=== PATIENT | female | born 1965 | race American Indian/Alaskan Native ===

== ENCOUNTER 2018-11-11 07:44 | Day surgery (SDC) | payer BC, OTHER ==
[~2018-11-11] VITALS: Ht 162.6 cm; Wt 83.8 kg
[~2018-11-11 07:44] MED LIST: AMLO10TA5 PO; AMOX500C PO; ATEN50TA2 PO; ATOR1TAB19 PO; AZIT-12 PO; BUPR150T3 PO; BUPR300T34 PO; CICL8SOL3 TOP; DICL1GEL3 TOP; KETO2CR; KETO2CR EXT; KETOROLAC 60 MG/2 ML VIAL (J1885) As Ordered ONE; LIDOCAINE 2% INJ 100 MG/5 ML SDV (FOR ANES.) As Ordered ONE; LOSA50TA88 PO; LR 1,000 ML IV SCH; MIDAZOLAM INJ 2 MG/2 ML VIAL (J2250) As Ordered ONE; ONDANSETRON 4MG/2ML VIAL (J2405) As Ordered ONE; PROPOFOL 200 MG/20 ML VIAL As Ordered ONE; ROPI0.253 PO; TOPI1CAP2 PO; fentaNYL 100 MCG/2 ML INJECTION (J3010) As Ordered ONE
[2018-11-11] MEDS ORDERED: BUPIVACAINE HCL 0.5% 10 ML VIAL As Ordered ONE ×2 (08:15→10:30)
[2018-11-11] MEDS ORDERED: dexameTHASONE 4 MG/ML 1ML VIAL (J1100) As Ordered ONE ×3 (08:15→11:05)
[2018-11-11] MEDS ORDERED: LIDOCAINE 2% MDV 20 ML VIAL As Ordered ONE ×2 (08:16→10:31)
[2018-11-11] MEDS ORDERED: LIDOCAINE PRES-FREE 2% 10ML AMP As Ordered ONE (08:50)
[2018-11-11] MEDS ORDERED: PROPOFOL 200 MG/20 ML VIAL As Ordered ONE ×3 (08:55→12:57)
[2018-11-11] MEDS ORDERED: METOCLOPRAMIDE INJ 10MG/2ML VIAL (J2765) As Ordered ONE (11:05)
[2018-11-11] MEDS ORDERED: HYDR-3713 PO (11:20)
[2018-11-11] MEDS ORDERED: ONDA4TAB6 PO (11:20)
[2018-11-11 11:55] VITALS: BP 122/71
[2018-11-11] MEDS ORDERED: LR 1,000 ML IV SCH (12:00)
[2018-11-11] MEDS ORDERED: oxyCODONE 5MG TAB PO PRN (12:00)
[2018-11-11] MEDS ORDERED: fentaNYL 100 MCG/2 ML INJECTION (J3010) IV PRN (12:00)
[2018-11-11] MEDS ORDERED: ePHEDrine SULFATE 25 MG/5 ML(5MG/ML) SYRINGE As Ordered ONE (12:41)
--- NOTE | 2018-11-11 13:06 | RO ---
DATE OF PROCEDURE: 11/11/2018 PREPROCEDURE DIAGNOSIS: Right foot plantar fasciitis. POSTPROCEDURE DIAGNOSIS: Right foot plantar fasciitis. PROCEDURE: Right foot endoscopic plantar fascial release. SURGEON: Festus Zepeda DPM MANAGER REPORTING: ANESTHESIA: Monitored anesthesia care. Preoperative injection of 18 mL of 1:1 mixture of 1% Lidocaine plain and 0.5% Marcaine plain. ESTIMATED BLOOD LOSS: Minimal. MATERIALS: 4-0 nylon. INJECTABLES: 1 mL of Decadron 4 mg/mL. COMPLICATIONS: None. CONDITION: Stable. DESCRIPTION OF PROCEDURE: Yolande Chen is a 53-year-old female who presents to [facility] with complaints of chronic plantar fasciitis. She presents today for surgical correction. Patient site and side were identified and marked in preoperative holding area. Consent was reviewed and obtained. The risks, complications, and alternatives to the procedure were explained to the patient in detail and all questions were answered. DESCRIPTION OF PROCEDURE: The patient was brought to the operating room and placed on the operating room table in supine position. Monitored anesthesia care was delivered by the anesthesia team. Preoperative injection of 18 mL of 1:1 mixture of 1% Lidocaine and 0.5% Marcaine were injected into the right foot. The right foot was prepped and draped in the normal sterile fashion. Tourniquet was applied to the right ankle and inflated to 225 mmHg. Incision was made at the medial heel with a #15 blade. Inferior margin of the plantar fascia was found with a hemostat. Trocar was inserted inferior to the plantar fascia and a lateral portal was created. Trocars were removed leaving the cannula in place. Camera was inserted into the lateral portal and plantar fascia was visualized. Using a blade from the [employer] system, the plantar fascia was released, leaving the lateral one-third intact. The site was irrigated with normal saline. Incision was repaired with 4-0 nylon. 1 mL of Decadron was injected. Sterile dressings were applied. The patient was brought to the postanesthesia care unit (PACU) with neurovascular status intact. She will be weight bearing as tolerated. Followup in office in 2 days.
== END 2018-11-11 12:42 | disposition home or self-care (01) ==
LOC: M SDC 07:44
PROVIDERS: ATTEND Podiatrist Foot & Ankle Surgery
DX: M72.2 Plantar fascial fibromatosis (principal); I10 Essential (primary) hypertension; F32.9 Major depressive disorder, single episode, unspecified; Z79.899 Other long term (current) drug therapy
CPT/HCPCS: 29893; J0690; J1100; J2250; J2405; J2765; J3010

== ENCOUNTER → 2022-04-10 | Outpatient (CLI) | payer BC, OTHER ==
[~2022-04-10] MED LIST changes: -AMLO10TA5 PO; +AMLO1TAB25 PO; +BUPR150T12 PO; -BUPR150T3 PO; -BUPR300T34 PO; +BUPR300T92 PO; +CICL6.6S TOP; -CICL8SOL3 TOP; +HYDR-3713 PO; -KETOROLAC 60 MG/2 ML VIAL (J1885) As Ordered ONE; -LIDOCAINE 2% INJ 100 MG/5 ML SDV (FOR ANES.) As Ordered ONE; +LOSA50TA28 PO; -LOSA50TA88 PO; -LR 1,000 ML IV SCH; -MIDAZOLAM INJ 2 MG/2 ML VIAL (J2250) As Ordered ONE; +ONDA4TAB6 PO; -ONDANSETRON 4MG/2ML VIAL (J2405) As Ordered ONE; -PROPOFOL 200 MG/20 ML VIAL As Ordered ONE; -fentaNYL 100 MCG/2 ML INJECTION (J3010) As Ordered ONE
== END ==
LOC: M PLAIMG 13:16
PROVIDERS: ATTEND Orthopaedic Surgery Adult Reconstructive Orthopaedic Surgery
DX: S82.101A Unspecified fracture of upper end of right tibia, initial encounter for closed fracture (principal); X58.XXXA Exposure to other specified factors, initial encounter; Y92.9 Unspecified place or not applicable

== ENCOUNTER → 2022-05-22 | Outpatient (CLI) | payer BC, OTHER | LOC: M SOG 07:57 | PROVIDERS: ATTEND Orthopaedic Surgery Adult Reconstructive Orthopaedic Surgery | DX: S82.124A Nondisplaced fracture of lateral condyle of right tibia, initial encounter for closed fracture (principal); S82.101A Unspecified fracture of upper end of right tibia, initial encounter for closed fracture; W18.30XA Fall on same level, unspecified, initial encounter; Y92.009 Unspecified place in unspecified non-institutional (private) residence as the place of occurrence of the external cause ==

== ENCOUNTER → 2024-08-23 | Outpatient (CLI) | payer BC, OTHER ==
[~2024-08-23] MED LIST changes: +BUPR-597 PO; -BUPR300T92 PO; +DICL100G10 TOP; -DICL1GEL3 TOP; +ONDA-282 PO; -ONDA4TAB6 PO; -ROPI0.253 PO; +ROPI5TAB19 PO
== END ==
LOC: M SOG 07:58
PROVIDERS: ATTEND Orthopaedic Surgery
DX: M17.0 Bilateral primary osteoarthritis of knee (principal)